=== PATIENT | male | born 1960 | race Caucasian/White ===

== ENCOUNTER 2024-04-27 00:35 | Emergency (ER) | payer OTHER ==
[2024-04-27] MEDS: cefTRIAXone 2 GM in Sodium Chloride 0.9% 50 ML IV ONE (01:40)
== END 2024-04-27 02:23 | disposition home or self-care (01) ==
LOC: JP.ED 00:35
DX: A69.20 Lyme disease, unspecified (principal); I10 Essential (primary) hypertension; Z79.899 Other long term (current) drug therapy
CPT/HCPCS: 96365; 99283; 99284-25; J0696; J3490